=== PATIENT | male | born 1985 | race Caucasian/White ===

== ENCOUNTER 2016-12-23 14:57 | Emergency (ER) | payer OTHER ==
--- NOTE | 2016-12-23 15:08 | ED ---
Laceration/Wound HPI - HPI Summary HPI Summary: 31 male presents to ED with complaints of laceration to left wrist that he sustained by accidentally slipping and cutting it with a razor blade while at work, just [employer]. Patient states it is still bleeding. Tetanus was last updated in 2014. Admits to some numbness in thumb however believes it was from using electrical tape to try and stop the bleeding. Denies any loss of ROM. No other complaints. Razor was clean. No FB. No exposed muscle or bone. No medications and no PMHx. - History of Current Complaint Stated Complaint: LT WRIST LAC Time Seen by Provider: 12/23/16 15:04 Hx Obtained From: Patient Mechanism of Injury: Sharp/Blunt Trauma - razor blade Onset/Duration: Sudden Onset Aggravating: Movement Alleviating: Compression Onset Severity: Moderate Current Severity: Mild Pain Intensity: 6 Pain Scale Used: 0-10 Numeric Associated Signs & Symptoms: Pain Related Hx: Dominant Hand (Right) PMH/Surg Hx/FS Hx/Imm Hx Endocrine/Hematology History: Denies: Hx Anticoagulant Therapy, Hx Diabetes Cardiovascular History: Denies: Hx Hypertension Respiratory History: Denies: Hx Asthma - Surgical History Surgery Procedure, Year, and Place: n/a - Immunization History Date of Tetanus Vaccine: 2014 Immunizations Up to Date: Yes Infectious Disease History: Denies: Hx of Known/Suspected MRSA, Traveled Outside the [place] in Last 30 Days - Family History Known Family History: Positive: None - Social History Alcohol Use: Occasionally Substance Use Type: Reports: None Smoking Status (MU): Current Some Day Smoker Review of Systems Constitutional: Negative Cardiovascular: Negative Respiratory: Negative Musculoskeletal: Negative Positive: Other - laceration Positive: Numbness - right thumb from electrical tape being too tight All Other Systems Reviewed And Are Negative: Yes Physical Exam Triage Information Reviewed: Yes Vital Signs On Initial Exam: Initial Vitals Temp Pulse Resp BP Pulse Ox 97.1 F 88 17 122/75 100 12/23/16 15:00 12/23/16 15:00 12/23/16 15:00 12/23/16 15:00 12/23/16 15:00 Vital Signs Reviewed: Yes Appearance: Positive: Well-Appearing, No Pain Distress, Well-Nourished Skin: Positive: Warm, Skin Color Reflects Adequate Perfusion, Dry, Other - 2 cm linear laceration to left radial side of wrist, no FB, active oozing bleeding. irrigated and cleaned, no other sign of laceration or injury. superficial and epidermal layer, no SQ fat, muscle or bone involvement.. Negative: Cold, Cyanosis @, Pale Head/Face: Positive: Normal Head/Face Inspection Eyes: Positive: Conjunctiva Clear ENT: Positive: Hearing grossly normal Neck: Positive: Supple, Nontender Respiratory/Lung Sounds: Positive: Clear to Auscultation, Breath Sounds Present. Negative: Rales, Rhonchi, Wheezes Cardiovascular: Positive: Normal, RRR, Pulses are Symmetrical in both Upper and Lower Extremities - 2+ radial b/l. Negative: Murmur, Rub Musculoskeletal: Positive: Normal, Strength/ROM Intact, Pain @ - when palpating lac, no bony tenderness, Other - no ecchymosis, edema, crepitus or obvious deformity noted. Negative: Interruption @, Abnormal @ Neurological: Positive: Normal, Sensory/Motor Intact - sensation intact, Alert, Oriented to Person Place, Time, Reflexes Intact, NV Bundle Intact Distally Procedures - Laceration/Wound Repair 1 Location: upper extremity - left radial side wrist Description: Linear Anesthesia: Local, 1.0%, Lido Length, Depth and Shape: 2cm, linear superficial epidermal layer, no tendon, SQ or bony involvement Betadine Prep?: Yes Irrigated w/ Saline (ccs): 500 Laceration/Wound Explored: clean, no foreign body removed Closure: Single Layer Suture Type: Prolene - 3-0 Number of Sutures: 3 Sterile Dressing Applied?: Yes Diagnostics - Vital Signs Vital Signs Temp Pulse Resp BP Pulse Ox 12/23/16 15:00 97.1 F 88 17 122/75 100 - Laboratory Lab Statement: Any lab studies that have been ordered have been reviewed, and results considered in the medical decision making process. Laceration Repair Course/Dx - Course Course Of Treatment: due to GONZALEZ no imaging was required. laceration was cleaned and sutured with 3 simple interupted sutures using sterile procedure, without complication. Patient tolerated procedure well. No other complaints. No other injuries. NO concern for infection at this time. Tetanus was UTD 2014. Follow up PCP. Aware of worsening signs and symptoms. Keep clean and dry. Do not submerge, gently rinse, triple antibiotic ointment. Have removed in 7 days. - Clinical Impression Provider Diagnoses: Laceration of left wrist Discharge - Discharge Plan Condition: Stable Disposition: HOME Patient Education Materials: Care For Your Stitches (ED), Laceration (ED) Referrals: [facility] [place] [facility] [Outside] Additional Instructions: Take ibuprofen/tylenol for pain and inflammation. Have stitches removed in 7 days. Watch for signs of infection, if these occur seek medical attention. Keep clean and dry for 24-48 hours. Do not submerge in water. After 48 hours, gently rinse and apply triple antibiotic ointment. Keep dressed for 24 hours, after that you may remove or re-dress. Follow up PCP. Return if new symptoms develop or symptoms worsen. Rest, Ice and elevate to help soothe pain and for swelling.
[2016-12-23 16:11] VITALS: BP 120/74
== END 2016-12-23 16:10 | disposition home or self-care (01) ==
LOC: ED 14:57
DX: S61.512A Laceration without foreign body of left wrist, initial encounter (principal); W26.0XXA Contact with knife, initial encounter; Y93.9 Activity, unspecified; Y92.89 Other specified places as the place of occurrence of the external cause; Z72.0 Tobacco use
CPT/HCPCS: 12001; 99282